=== PATIENT | female | born 2000 | race Caucasian/White ===

== ENCOUNTER 2022-03-18 19:14 | Emergency (ER) | payer SELFPAY ==
[~2022-03-18] VITALS: Ht 152.4 cm; Wt 111.1 kg
--- NOTE | 2022-03-18 19:25 | NUR ---
Arrival 21 y/o female presents to ED ambulatory states a horse stepped on right great toe x 30 days ago ans again today pain to right great toe, erythemia, crusty yellow drianage. monitors applied vs nadir , Dr. Donovan at bedside.
[2022-03-18 19:34] VITALS: BP 138/90
[2022-03-18] MEDS ORDERED: TYLENOL #3 PO STA (19:38)
[2022-03-18] MEDS ORDERED: TYLENOL #3 PO ONE (19:42)
--- NOTE | 2022-03-18 19:57 | DIREP ---
PROCEDURE:XRAY FOOT MIN 3 VWS-RT COMPARISON:None. INDICATIONS:crush injury R foot FINDINGS: BONES:Normal. JOINTS:Normal. SOFT TISSUES:Normal. OTHER:No additional findings. CONCLUSION:Normal examination. Dictated by: Cynthia Le III, MD on 03/18/2022 at 07:55 PM
--- NOTE | 2022-03-18 20:45 | ER.PDOC ---
General Chief Complaint: Requesting Medical Care Stated Complaint: RIGHT BIG TOE INJURY Time seen by MD: 19:42 Source: patient Exam Limitations: no limitations History of Present Illness Initial Comments 21-year-old female had a horse stepped on her left foot. She states is happened a month ago also, she already had some swelling in the great toe of the left foot. She is able to ambulate. There is some redness and swelling over left toe. No other injuries Allergies: Coded Allergies: No Known Allergies (Unverified , 03/18/22) Past Medical History Medical History: no pertinent history Surgical History: no surgical history Social History Alcohol Use: none Drug Use: none Review of Systems All Other Systems: Reviewed and Negative Physical Exam General Appearance: Alert Lower Extremity: tenderness (Tenderness, edema of the left great toe) Joint Exam: joints nml Vascular: no vascular compromise Neuro/Psych: sensation nml, motor nml Skin: color nml Back/Neck: nml inspection EENT: eyes inspection nml Respiratory: no resp distress Results/Orders Results/Orders Orders - ERIC MALLORY MD Xr Foot Rt (03/18/22 19:38) Acetaminophen With Codeine (Tylenol #3) (03/18/22 19:38) Acetaminophen With Codeine (Tylenol #3) (03/18/22 19:42) Vital Signs Date Time Temp Pulse Resp B/P (MAP) Pulse Ox O2 Delivery O2 Flow Rate FiO2 03/18/22 19:34 98.2 103 18 138/90 (106) 99 Room Air* 0 21 03/18/22 19:34 98.2 103 18 99 03/18/22 19:34 98.2 103 18 Administered Medications Medications (Trade) Dose Ordered Sig/Ld Route PRN Reason Start Time Stop Time Status Last Admin Dose Admin Acetaminophen/ Codeine Phosphate (Tylenol #3) 2 each OT STAT PO 03/18/22 19:38 03/18/22 19:40 DC 03/18/22 19:44 2 EACH Progress Progress No fracture, she is able to ambulate on the extremity, no nailbed involvement, counseled her on elevation, NSAIDs for pain control, placed her in a splint for comfort ER DEPART Departure Time of Disposition: 20:44 Disposition: 01 HOME / SELF CARE / HOMELESS Impression: Primary Impression: Contusion of toe of left foot Condition: Stable Referrals: PCP,UNKNOWN (PCP) PRIMARY CARE PROVIDER Duration or Time Spent with Pa: 10m ERIC MALLORY MD Mar 18, 2022 20:45
[2022-03-18 21:07] VITALS: BP 113/70
== END 2022-03-18 21:07 | disposition home or self-care (01) ==
LOC: ER 19:14
DX: S90.111A Contusion of right great toe without damage to nail, initial encounter (principal); W55.19XA Other contact with horse, initial encounter; Y93.89 Activity, other specified; Y92.89 Other specified places as the place of occurrence of the external cause; Y99.8 Other external cause status
CPT/HCPCS: 99283; 29515; 73630; J3490